=== PATIENT | female | born 1930 | race Caucasian/White ===

== ENCOUNTER 2017-09-02 09:53 | Inpatient (IN) | payer MEDICARE, MEDICAID ==
[2017-09-02] VITALS (9 sets, daily range): BP systolic 146–188; BP diastolic 63–93
[~2017-09-02] VITALS: Ht 160 cm; Wt 81.6 kg
[~2017-09-02 09:53] MED LIST: HYDROCODON-ACE1 EA15 ORAL
--- NOTE | 2017-09-02 10:06 | Emergency Room Report ---
History of Present Illness General Chief Complaint: Flu Like Symptoms Source: Patient, EMS Present Illness HPI Patient is an 86 year-old female brought in by EMS after increased generalized weakness and vomiting. Patient had onset of symptoms is morning. The patient reported feeling dizzy since this morning. Patient prior history of arthritis. Patient noted be Farsi speaking. She was noted to have a prior surgical history. Allergies: Coded Allergies: No Known Allergies (Unverified , 10/14/15) Patient History Past Medical History: see triage record Now: No Reviewed Nursing Documentation: PMH: Agreed, PSxH: Agreed Nursing Documentation-PMH Past Medical History: No History, Except For Hx Hypertension: Yes Review of Systems All Other Systems: limited - by mental status Physical Exam Vital Signs Date Time Temp Pulse Resp B/P (MAP) Pulse Ox O2 Delivery O2 Flow Rate FiO2 09/02/17 09:52 97.6 80 20 178/79 98 Room Air 97.5 General Appearance: alert, GCS 15, mild distress, Chronically Ill Eyes: bilateral eye abnormal EOM ENT: normal pharynx Neck: full range of motion Respiratory: chest non-tender, lungs clear, normal breath sounds Cardiovascular #1: normal peripheral pulses, regular rate, rhythm Gastrointestinal: normal inspection, non tender, soft, tenderness - epigastric Musculoskeletal: normal inspection Neurologic: normal inspection, alert, oriented x3, campaign assistant III-XII nml as tested, motor weakness - bilateral upper extremity Medical Decision Making Diagnostic Impression: Primary Impression: Vertigo Additional Impressions: Dehydration Generalized weakness ER Course Patient presented for dizziness. Differential diagnosis included but not limited to urinary tract infection, anemia, arrhythmia, abdominal aortic aneurysm, CVA, subarachnoid hemorrhage, benign positional vertigo.Because of complexity of patient's case laboratory testing and imaging studies were ordered.The patient started on IV fluids. Was given IV antiemetics some improvement in her symptoms. Patient was noted to some vertigo sensation CT the head read by radiology showed no evidence of acute hemorrhage. CT of the pelvis read by radiology show no inflammatory change in the abdomen or pelvis. A septal thickening in the visualized lung base to me suggest minimal pulmonary edema. Patient was noted to have bilateral renal cysts. Moderate amount of mitral and aortic annular calcification was noted. Moderate colonic diverticulosis. The patient was noted. Better after medications however she still felt weak. Patient was given IV Rocephin for her urinary infection. Dr. Landen Escalante was contacted for inpatient management Labs Test 09/02/17 10:50 09/02/17 11:35 White Blood Count 8.0 K/UL (4.8-10.8) Red Blood Count 4.71 M/UL (4.20-5.40) Hemoglobin 14.0 G/DL (12.0-16.0) Hematocrit 41.1 % (37.0-47.0) Mean Corpuscular Volume 87 FL (80-99) Mean Corpuscular Hemoglobin 29.8 PG (27.0-31.0) Mean Corpuscular Hemoglobin Concent 34.1 G/DL (32.0-36.0) Red Cell Distribution Width 11.0 % (11.6-14.8) Platelet Count 182 K/UL (150-450) Mean Platelet Volume 7.9 FL (6.5-10.1) Neutrophils (%) (Auto) 78.3 % (45.0-75.0) Lymphocytes (%) (Auto) 16.0 % (20.0-45.0) Monocytes (%) (Auto) 4.5 % (1.0-10.0) Eosinophils (%) (Auto) 0.4 % (0.0-3.0) Basophils (%) (Auto) 0.9 % (0.0-2.0) Sodium Level 138 MMOL/L (136-145) Potassium Level 4.3 MMOL/L (3.5-5.1) Chloride Level 103 MMOL/L (98-107) Carbon Dioxide Level 30 MMOL/L (21-32) Anion Gap 5 mmol/L (5-15) Blood Urea Nitrogen 18 mg/dL (7-18) Creatinine 0.7 MG/DL (0.55-1.30) Estimat Glomerular Filtration Rate mL/min (>60) Glucose Level 115 MG/DL (74-106) Lactic Acid Level 1.60 mmol/L (0.66-2.22) Calcium Level 9.6 MG/DL (8.5-10.1) Total Bilirubin 0.4 MG/DL (0.2-1.0) Aspartate Amino Transf (AST/SGOT) 24 U/L (15-37) Alanine Aminotransferase (ALT/SGPT) 20 U/L (12-78) Alkaline Phosphatase 71 U/L (46-116) Total Creatine Kinase 40 U/L (26-308) Creatine Kinase MB 1.5 NG/ML (0.0-3.6) Creatine Kinase MB Relative Index 3.7 Troponin I 0.000 ng/mL (0.000-0.056) Total Protein 7.7 G/DL (6.4-8.2) Albumin 3.5 G/DL (3.4-5.0) Globulin 4.2 g/dL Albumin/Globulin Ratio 0.8 (1.0-2.7) Urine Color Pale yellow Urine Appearance Clear Urine pH 8 (4.5-8.0) Urine Specific [place] 1.010 (1.005-1.035) Urine Protein Negative (NEGATIVE) Urine Glucose (UA) Negative (NEGATIVE) Urine Ketones Negative (NEGATIVE) Urine Occult Blood Negative (NEGATIVE) Urine Nitrite Negative (NEGATIVE) Urine Bilirubin Negative (NEGATIVE) Urine Urobilinogen Normal MG/DL (0.0-1.0) Urine Leukocyte Esterase 1+ (NEGATIVE) Urine RBC 0-2 /HPF (0 - 2) Urine WBC 2-4 /HPF (0 - 2) Urine Squamous Epithelial Cells Occasional /LPF Urine Bacteria Occasional /HPF (NONE) EKG Diagnostic Results Rate: normal Rhythm: NSR ST Segments: no acute changes Last Vital Signs Date Time Temp Pulse Resp B/P (MAP) Pulse Ox O2 Delivery O2 Flow Rate FiO2 09/02/17 09:52 97.6 80 20 178/79 98 Room Air 97.5 Status: unchanged Disposition: ADMITTED INPATIENT Condition: Stable Scripts Ondansetron Odt* (ZOFRAN ODT*) 4 Mg Tab.rapdis 4 MG ORAL Q6H Y for Nausea & Vomiting, #30 TAB 0 Refills Prov: Minh Swenson 09/02/17 Minh Swenson Sep 02, 2017 10:06
[2017-09-02 11:27] LABS: BASOPHILS % (AUTO) 0.9 % (0.0-2.0); EOSINOPHILS % (AUTO) 0.4 % (0.0-3.0); HEMATOCRIT 41.1 % (37.0-47.0); MEAN CORPUSCULAR VOLUME 87 FL (80-99); MONOCYTES % (AUTO) 4.5 % (1.0-10.0); NEUTROPHILS % (AUTO) 78.3 % (45.0-75.0); PLATELET COUNT 182 K/UL (150-450); RED BLOOD COUNT 4.71 M/UL (4.20-5.40)
--- NOTE | 2017-09-02 11:42 | Diagnostic Imaging Report ---
Indication: Headache Technique: Contiguous 5 mm thick transaxial imaging of the head obtained in a Siemens Sensation [address] scanner. Soft tissue and bone windows generated. Automatic Exposure Control was utilized. Total Dose length Product (DLP): 1383.[address] Dose Index Volume (CTDIvol): 70.38 mGy Comparison: none Findings: There is mild prominence of the ventricles, basal cisterns, and cerebral sulci consistent with atrophy. Mild, nonspecific, white matter hypoattenuation is noted throughout the brain consistent with chronic small vessel disease. There is no midline shift, edema, acute hemorrhage, mass effect, or abnormal extra-axial fluid collections. Bones and extra osseous soft tissues are unremarkable. Impression: No acute intracranial bleed, mass effect or edema. Mild atrophy of the brain. Nonspecific white matter hypoattenuation probably due to chronic small vessel disease. The CT scanner at [facility] is accredited by the [employer] and the scans are performed using dose optimization techniques as appropriate to a performed exam including Automatic Exposure control.
[2017-09-02 11:46] LABS: ANION GAP 5 mmol/L (5-15); BLOOD UREA NITROGEN 18 mg/dL (7-18); CALCIUM 9.6 MG/DL (8.5-10.1); CARBON DIOXIDE 30 MMOL/L (21-32); CHLORIDE 103 MMOL/L (98-107); CREATININE 0.7 MG/DL (0.55-1.30); POTASSIUM 4.3 MMOL/L (3.5-5.1); SODIUM 138 MMOL/L (136-145)
[2017-09-02 11:53] LABS: ALANINE AMINOTRANSFERASE 20 U/L (12-78); ALBUMIN 3.5 G/DL (3.4-5.0); ALBUMIN/GLOBULIN RATIO 0.8 (1.0-2.7); ALKALINE PHOSPHATASE 71 U/L (46-116); ASPARTATE AMINO TRANSFERASE 24 U/L (15-37); BILIRUBIN,TOTAL 0.4 MG/DL (0.2-1.0); CKMB 1.5 NG/ML (0.0-3.6); CREATINE KINASE 40 U/L (26-308)
[2017-09-02 11:55] LABS: APPEARANCE,URINE CLEAR; BILIRUBIN, URINE NEGATIVE (NEGATIVE); COLOR,URINE PALE YELLOW; GLUCOSE, URINE (UA) NEGATIVE (NEGATIVE); KETONES,URINE NEGATIVE (NEGATIVE); LEUKOCYTE ESTERASE ,URINE 1+ (NEGATIVE); NITRITE,URINE NEGATIVE (NEGATIVE); PH,URINE 8 (4.5-8.0); PROTEIN,URINE NEGATIVE (NEGATIVE); UROBILINOGEN,URINE NORMAL MG/DL (0.0-1.0)
[2017-09-02] MEDS ORDERED: Meclizine 25mg tab ORAL ONE (12:30)
[2017-09-02] MEDS ORDERED: ZOFRAN ODT4 MG ORAL (14:31)
[2017-09-02] MEDS ORDERED: KEFLEX500 MG ORAL (14:31)
[2017-09-02] MEDS ORDERED: MECLIZINE HCL12.5 MG ORAL (14:31)
[2017-09-02] MEDS ORDERED: D5 1/2NS w/KCl 20mEq 1,000 ML IV SCH (15:30)
[2017-09-02] MEDS ORDERED: cefTRIAXone 1 GM in NS 55 ML IVPB ONE (15:30)
[2017-09-02] MEDS ORDERED: LOSARTAN POTAS100 MG ORAL (15:31)
[2017-09-02] MEDS ORDERED: ASPIRIN81 M3 PO (15:32)
[2017-09-02] MEDS ORDERED: LOPRESSOR HCT1 EAC3 ORAL (15:32)
[2017-09-02] MEDS ORDERED: CALCIUM500 M3 PO (15:33)
[2017-09-02] MEDS ORDERED: AMBIEN5 MG ORAL (15:33)
[2017-09-02] MEDS ORDERED: LOSARTAN POTASS50 MG ORAL (19:38)
[2017-09-02] MEDS ORDERED: METOPROLOL SUCC50 MG ORAL (19:38)
[2017-09-03] VITALS (7 sets, daily range): BP systolic 126–177; BP diastolic 72–105
[2017-09-03] MEDS ORDERED: Promethazine/Codeine 5ml UD ORAL PRN ×2 (05:45→11:45)
[2017-09-03] MEDS ORDERED: Nitroglycerin Subl 0.4mg tab SL PRN ×2 (05:45→11:00)
[2017-09-03] MEDS ORDERED: Ketorolac 30mg Inj IV PRN ×2 (05:45→14:00)
[2017-09-03] MEDS ORDERED: Norco 5mg/325mg tab ORAL PRN ×2 (05:45→11:45)
[2017-09-03] MEDS ORDERED: Albuterol/Ipratropium 3ml neb HHN PRN ×2 (05:45→13:45)
[2017-09-03] MEDS ORDERED: Morphine Sulfate 2mg/ml Inj IVP PRN ×2 (05:45→13:00)
[2017-09-03] MEDS ORDERED: LORazepam Inj 2mg/ml 1ml IV PRN ×2 (05:45→13:45)
[2017-09-03] MEDS ORDERED: Solu-MEDROL 125mg Inj IV SCH ×2 (06:00→12:00)
[2017-09-03] MEDS ORDERED: Piperacillin/Tazobactam 2.25 GM in D5W 55 ML IV SCH (06:00)
--- NOTE | 2017-09-03 08:38 | Diagnostic Imaging Report ---
Clinical Indication: Abdominal pain Technique: No oral contrast utilized, per emergency room physician request IV administration nonionic contrast. Venous phase spiral acquisition obtained through the abdomen and pelvis. Multiplanar reconstructions were generated. Total dose length product 736.93 mGycm. CTDIvol(s) 15.7 mGy. Dose reduction achieved using automated exposure control Comparison: none Findings: Findings is not visualized. There are no findings to suggest acute appendicitis, however. There is fairly extensive colonic diverticulosis. No evidence of diverticulitis. No small bowel distention. There is a small fat-containing ventral hernia. There is a small sliding-type hiatal hernia. The stomach is otherwise unremarkable. Unremarkable duodenum. The liver, gallbladder, bile ducts, pancreas, spleen, adrenals are unremarkable. The kidneys demonstrate multiple bilateral cysts as well as multiple bilateral subcentimeter low-attenuation lesions which are too small to characterize. 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 No retroperitoneal or mesenteric mass or adenopathy. No pelvic mass or adenopathy. There is marked lumbar scoliotic deformity. There is slight loss of height of the L1 and L4 vertebral bodies, as well as grade 1-2 spondylolisthesis of L5 on S1, no associated pars defect. 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 There are old healed left lower rib fracture deformities The included lung bases demonstrate fairly extensive interstitial septal and patchy airspace opacities. The heart is borderline enlarged. There is extensive ascending thoracic aortic calcification. Impression: No acute abnormality Colonic diverticulosis. No evidence of diverticulitis Pulmonary basilar interstitial septal thickening and patchy airspace opacities, suspect pulmonary edema Mild cardiomegaly 9 mm calcified splenic hilar aneurysm L1 and L4 vertebral body compression deformity, most likely on the basis of acuity indeterminate compression fractures, although could at least in part be due to degenerative remodeling Lumbar scoliosis and associated degenerative spondylosis, L5 on S1 alignment abnormality Bilateral renal cysts. Bilateral subcentimeter low-attenuation renal lesions too small to characterize, most likely benign cysts. No further follow-up necessary Findings noted, including aortic atherosclerosis, old healed left rib fracture deformities, sacral spinal canal nerve root sleeve cyst, small fat-containing ventral hernia, small sliding-type hiatal hernia. This agrees with the preliminary interpretation provided overnight by [facility] teleradiology service. The CT scanner at [facility] is accredited by the [employer] and the scans are performed using protocols designed to limit radiation exposure to as low as reasonably achievable to attain images of sufficient resolution adequate for diagnostic evaluation.
[2017-09-03] MEDS ORDERED: Theophylline ER 100mg ORAL SCH (09:00)
[2017-09-03] MEDS ORDERED: Oseltamivir 75mg cap ORAL SCH (09:00)
[2017-09-03] MEDS ORDERED: Metoprolol Succinate XL 50mg tab ORAL SCH (09:00)
[2017-09-03] MEDS ORDERED: Heparin 5000 units/ml inj SUBQ SCH ×2 (09:00→21:00)
[2017-09-03] MEDS ORDERED: Losartan 50mg tab ORAL SCH (09:00)
--- NOTE | 2017-09-03 09:56 | History & Physical ---
History and Physical History & Physicial Dictated for Int Med-Dr Escalante no. [id number] KARIE RHODES Sep 03, 2017 09:56
--- NOTE | 2017-09-03 11:17 | Consultation ---
History of Present Illness General Date patient seen: Sep 03, 2017 Time patient seen: 09:30 Chief Complaint: Flu Like Symptoms Referring physician: dr Escalante Reason for Consultation: pulm consult Present Illness HPI 86 y/old female with PMH of HTN, arthritis presented with flu like symptoms, generalized weakness, congestion , dizziness VS revealed elevated BP 178/79, otherwise pulse ox stable on RA, afebrile CT head no acute IC pathology CT A/P no acute pathology, + evidence of interstitial pulm congestion troponin negative ECG no acute ischemic changes no leukocytosis stable HH, lytes, lactic acid patient was started on empiric abx, given 1 dose of Solumedrol and nebulizing treatment with bronchodilators and was admitted to [facility] for further management Allergies: Coded Allergies: No Known Allergies (Unverified , 10/14/15) Medication History Scheduled Aspirin (Aspirin), 81 MG PO DAILY, (Reported) Losartan Potassium* (Losartan Potassium*), 100 MG ORAL DAILY, (Reported) Metoprolol Succinate* (Metoprolol Succinate*), 50 MG ORAL DAILY, (Reported) Scheduled PRN Hydrocodone/Acetaminophen 5-325* (Hydrocodone/Acetaminophen 5-325*), 1 TAB ORAL Q6H PRN for For Pain Ondansetron Odt* (Zofran Odt*), 4 MG ORAL Q6H PRN for Nausea & Vomiting Zolpidem Tartrate* (Ambien*), 5 MG ORAL BEDTIME PRN for Insomnia, (Reported) Miscellaneous Medications Calcium Carbonate (Calcium), 500 MG PO, (Reported) Discontinued Medications Cephalexin* (Keflex*), 500 MG ORAL Q6H Discontinued Reason: Pt stopped taking med Meclizine Hcl* (Meclizine*), 12.5 MG ORAL THREE TIMES A DAY Discontinued Reason: Pt stopped taking med Patient History Resuscitation status Full Code Advanced Directive on File Review of Systems Constitutional: Reports: weakness Eye: Reports: no symptoms ENT: Reports: no symptoms Respiratory: Reports: see HPI Cardiovascular: Reports: see HPI Gastrointestinal: Reports: constipation Genitourinary: Reports: no symptoms Musculoskeletal: Reports: muscle stiffness Skin: Reports: dryness Psychiatric: Reports: no symptoms Neurological: Reports: no symptoms Endocrine: Reports: no symptoms Hematologic/Lymphatic: Reports: no symptoms ROS Narrative limited Physical Exam General Appearance: no apparent distress, alert Lines, tubes and drains: peripheral HEENT: normocephalic, atraumatic, anicteric Neck: non-tender, supple Respiratory/Chest: decreased breath sounds Cardiovascular/Chest: normal rate, regular rhythm - SR on tele Abdomen: normal bowel sounds, non tender, soft - obese Extremities: no calf tenderness, normal capillary refill Neurologic: alert, responsive Musculoskeletal: atrophy - BLE Last 24 Hour Vital Signs Date Time Temp Pulse Resp B/P (MAP) Pulse Ox O2 Delivery O2 Flow Rate FiO2 09/03/17 08:12 71 141/72 09/03/17 08:11 141/72 09/03/17 08:00 97.9 71 18 141/72 95 09/03/17 08:00 72 09/03/17 04:00 71 09/03/17 04:00 98.8 78 20 147/77 93 09/03/17 00:00 98.2 73 19 126/105 96 09/03/17 00:00 74 09/02/17 21:00 98.9 68 20 146/72 96 09/02/17 20:00 71 09/02/17 18:10 67 09/02/17 17:30 97.7 67 20 171/70 95 09/02/17 16:31 98.1 67 18 151/63 97 Room Air 98.1 09/02/17 16:00 98.1 67 18 151/63 97 Room Air 98.1 09/02/17 15:00 98.1 67 27 172/93 97 Room Air 98.1 09/02/17 14:00 98.1 69 19 164/71 99 Room Air 98.1 09/02/17 13:06 68 13 162/70 97 Room Air 09/02/17 12:00 67 12 175/83 97 Room Air Intake and Output 09/02/17 09/03/17 19:00 07:00 Intake Total 1350 ml Output Total 100 ml Balance 1250 ml Intake Oral 350 ml IV Total 1000 ml Output Urine Total 100 ml # Voids 3 2 Laboratory Tests Test 09/02/17 11:35 Urine Color Pale yellow Urine Appearance Clear Urine pH 8 (4.5-8.0) Urine Specific [place] 1.010 (1.005-1.035) Urine Protein Negative (NEGATIVE) Urine Glucose (UA) Negative (NEGATIVE) Urine Ketones Negative (NEGATIVE) Urine Occult Blood Negative (NEGATIVE) Urine Nitrite Negative (NEGATIVE) Urine Bilirubin Negative (NEGATIVE) Urine Urobilinogen Normal MG/DL (0.0-1.0) Urine Leukocyte Esterase 1+ (NEGATIVE) H Urine RBC 0-2 /HPF (0 - 2) Urine WBC 2-4 /HPF (0 - 2) Urine Squamous Epithelial Cells Occasional /LPF Urine Bacteria Occasional /HPF (NONE) Height (Feet): 5 Height (Inches): 3.00 Weight (Pounds): 180 Medications Current Medications Medications (Trade) Dose Ordered Sig/Zelda Route PRN Reason Start Time Stop Time Status Last Admin Dose Admin Acetaminophen/ Hydrocodone Bitart ([place] 5/325) 1 tab Q6H PRN ORAL For Pain 09/03/17 11:45 09/10/17 05:44 UNV Albuterol/ Ipratropium (Albuterol/ Ipratropium) 3 ml Q4H PRN HHN dyspnea 09/03/17 13:45 09/08/17 05:44 UNV Dextrose (Dextrose 50%) STAT PRN IV Hypoglycemia 09/04/17 05:45 10/03/17 05:44 UNV Heparin Sodium (Porcine) (Heparin 5000 units/ml) 5,000 units EVERY 12 HOURS SUBQ 09/03/17 21:00 10/03/17 08:59 UNV Ketorolac Tromethamine (Toradol 30mg) 15 mg EVERY 8 HOURS PRN IV moderate pain 4-6 09/03/17 14:00 09/08/17 05:44 UNV Lorazepam (Ativan 2mg/ml 1ml) 0.5 mg Q4H PRN IV For Anxiety 09/03/17 13:45 09/10/17 05:44 UNV Losartan Potassium (Cozaar) 100 mg DAILY ORAL 09/04/17 09:00 10/03/17 08:59 UNV Methylprednisolone Sodium Succinate (Solu-MEDROL) 60 mg EVERY 6 HOURS IV 09/03/17 12:00 10/03/17 05:59 UNV Metoprolol Succinate (Toprol XL) 50 mg DAILY ORAL 09/04/17 09:00 10/03/17 08:59 UNV Morphine Sulfate (Morphine Sulfate) 2 mg EVERY 4 HOURS PRN IVP severe pain 7-10 09/03/17 13:00 09/10/17 05:44 UNV Nitroglycerin (Ntg) 0.4 mg Q5M X 3 DOSES PRN SL Prn Chest Pain 09/03/17 11:00 10/03/17 05:44 UNV Ondansetron HCl (Zofran) 4 mg Q6H PRN IVP Nausea & Vomiting 09/03/17 11:45 10/03/17 05:44 UNV Oseltamivir Phosphate (Tamiflu) 30 mg BID ORAL 09/03/17 18:00 09/07/17 18:01 UNV Piperacillin Sod/ Tazobactam Sod 3.375 gm/Sodium Chloride 110 ml @ 27.5 mls/hr EVERY 8 HOURS IVPB 09/03/17 14:00 09/08/17 13:59 UNV Promethazine HCl/ Codeine (Phenergan with Codeine) 5 ml Q6H PRN ORAL cough 09/03/17 11:45 10/03/17 05:44 UNV Temazepam (Restoril) 15 mg HSPRN PRN ORAL Insomnia 09/04/17 05:45 09/10/17 05:44 UNV Theophylline (Robert-Dur) 100 mg EVERY 12 HOURS ORAL 09/03/17 21:00 10/03/17 08:59 UNV Assessment/Plan Assessment/Plan ASSESSMENT Flu like symptoms Nausea with vomiting. Vertigo. Probable urinary tract infection. Possible dehydration HTN Generalized weakness PLAN OF CARE tele O2 HHN prn s/p 1 L IV empiric abx sputum cx if able a/tussive prn influenza screen negative, empiric Tamiflu ID consult CT head no acute IC pathology BP management with current regimen and optimize as needed fall precautions PT/OT DVT GI prophylaxis pain management bowel regimen supportive care case discussed and evaluated by supervising physician Ra ([facility])Sejal NP Sep 03, 2017 11:17
--- NOTE | 2017-09-03 11:44 | Consultation ---
Consult Note Consult Note ID DIC # [id number] RUSSEL MEMBRENO M.D. Sep 03, 2017 11:44
[2017-09-03] MEDS ORDERED: Zosyn 3.375gm q8h **Extended infusion IVPB SCH ×2 (14:00)
[2017-09-03] MEDS ORDERED: Piperacillin/Tazobactam 3.375 GM in NS 110 ML IVPB SCH (14:00)
--- NOTE | 2017-09-03 14:08 | Diagnostic Imaging Report ---
Indication: Shortness of breath Technique: One view of the chest Comparison: none Findings: Inspiration is suboptimal. 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 There is generalized mild interstitial prominence. No focal airspace consolidation. There is right infrahilar atelectasis. The heart is borderline enlarged. Impression: Acuity indeterminate mild interstitial prominence although suspect interstitial edema based on recent CT findings. Correlate with clinical findings. Other findings as noted
[2017-09-03] MEDS: Solu-MEDROL 125mg Inj IV SCH ×2 (14:34→20:39)
[2017-09-03] MEDS: HydrALAZINE 50mg tab ORAL PRN (20:38)
[2017-09-03] MEDS: Theophylline ER 100mg ORAL SCH (20:39)
[2017-09-04] VITALS: BP 173/80
[2017-09-04] MEDS: HydrALAZINE 50mg tab ORAL PRN (00:42)
[2017-09-04 04:00] VITALS: BP 146/88
[2017-09-04] MEDS: Solu-MEDROL 125mg Inj IV SCH (05:18)
[2017-09-04 08:12] VITALS: BP 141/74
[2017-09-04] MEDS: Theophylline ER 100mg ORAL SCH (08:27)
--- NOTE | 2017-09-04 08:36 | Cardiology Report ---
APPROVED REPORT EKG Measurement Heart [id number] Normal sinus rhythm Possible Left atrial enlargement Borderline ECG
[2017-09-04 08:38] LABS: BASOPHILS % (AUTO) 0.5 % (0.0-2.0); HEMATOCRIT 39.1 % (37.0-47.0); HEMOGLOBIN 13.4 G/DL (12.0-16.0); LYMPHOCYTES % (AUTO) 15.9 % (20.0-45.0); MEAN CORPUSCULAR VOLUME 85 FL (80-99); MONOCYTES % (AUTO) 6.2 % (1.0-10.0); NEUTROPHILS % (AUTO) 77.4 % (45.0-75.0); PLATELET COUNT 177 K/UL (150-450); RED BLOOD COUNT 4.58 M/UL (4.20-5.40); RED CELL DISTRIBUTION WIDTH 10.8 % (11.6-14.8); WHITE BLOOD COUNT 5.7 K/UL (4.8-10.8)
[2017-09-04] MEDS ORDERED: Metoprolol Succinate XL 50mg tab ORAL SCH (09:00)
[2017-09-04] MEDS ORDERED: Losartan 50mg tab ORAL SCH (09:00)
[2017-09-04 09:03] LABS: ANION GAP 4 mmol/L (5-15); BLOOD UREA NITROGEN 17 mg/dL (7-18); CALCIUM 9.6 MG/DL (8.5-10.1); CARBON DIOXIDE 28 MMOL/L (21-32); CHLORIDE 104 MMOL/L (98-107); CREATININE 0.6 MG/DL (0.55-1.30); POTASSIUM 3.8 MMOL/L (3.5-5.1); SODIUM 136 MMOL/L (136-145)
--- NOTE | 2017-09-04 09:11 | Infectious Diseases Prog Note ---
Assessment/Plan Assessment/Plan A: Afebrile generalized weakness , improved Sp N/V HTN Arthritis P: Cont monitor pt off of AB Rx Monitor CBC Monitor BMP Monitor Cxray Subjective Constitutional: Denies: no symptoms, fever, chills, fatigue, anorexia, drenching sweats, other Allergies: Coded Allergies: No Known Allergies (Unverified , 10/14/15) Objective Vital Signs Last 24 Hour Vital Signs Date Time Temp Pulse Resp B/P (MAP) Pulse Ox O2 Delivery O2 Flow Rate FiO2 09/04/17 08:27 87 141/74 09/04/17 08:27 141/74 09/04/17 08:12 98.1 87 19 141/74 98 09/04/17 04:00 97.7 93 20 146/88 95 09/04/17 04:00 95 Room Air 09/04/17 00:42 173/80 09/04/17 00:00 95 Room Air 09/04/17 00:00 97.7 81 20 173/80 95 09/03/17 23:34 76 20 93 Room Air 09/03/17 23:34 76 20 93 Room Air 09/03/17 21:11 76 20 Room Air 09/03/17 20:38 177/94 09/03/17 20:00 93 Room Air 09/03/17 20:00 98.0 81 20 177/94 93 09/03/17 16:10 80 159/73 09/03/17 15:18 98.3 84 19 165/74 95 09/03/17 14:47 83 18 93 Room Air 09/03/17 14:41 82 18 93 Room Air 09/03/17 12:00 97.7 74 20 161/77 94 Height (Feet): 5 Height (Inches): 3.00 Weight (Pounds): 180 HEENT: anicteric Respiratory/Chest: no respiratory distress Cardiovascular: normal rate Abdomen: no organomegaly Microbiology Date/Time Source Procedure Growth Status 09/02/17 11:05 Blood Blood Culture - Preliminary NO GROWTH AFTER 24 HOURS Resulted 09/02/17 10:50 Blood Blood Culture - Preliminary NO GROWTH AFTER 24 HOURS Resulted 09/02/17 10:50 Nasal Nares Influenza Types A,B Antigen (PRAKASH) - Final Complete Laboratory Tests Test 09/03/17 12:30 09/04/17 06:40 Pro-B-Type Natriuretic Peptide 390 pg/mL (0-125) H White Blood Count 5.7 K/UL (4.8-10.8) Red Blood Count 4.58 M/UL (4.20-5.40) Hemoglobin 13.4 G/DL (12.0-16.0) Hematocrit 39.1 % (37.0-47.0) Mean Corpuscular Volume 85 FL (80-99) Mean Corpuscular Hemoglobin 29.2 PG (27.0-31.0) Mean Corpuscular Hemoglobin Concent 34.3 G/DL (32.0-36.0) Red Cell Distribution Width 10.8 % (11.6-14.8) L Platelet Count 177 K/UL (150-450) Mean Platelet Volume 7.9 FL (6.5-10.1) Neutrophils (%) (Auto) 77.4 % (45.0-75.0) H Lymphocytes (%) (Auto) 15.9 % (20.0-45.0) L Monocytes (%) (Auto) 6.2 % (1.0-10.0) Eosinophils (%) (Auto) 0.0 % (0.0-3.0) Basophils (%) (Auto) 0.5 % (0.0-2.0) Sodium Level 136 MMOL/L (136-145) Potassium Level 3.8 MMOL/L (3.5-5.1) Chloride Level 104 MMOL/L (98-107) Carbon Dioxide Level 28 MMOL/L (21-32) Anion Gap 4 mmol/L (5-15) L Blood Urea Nitrogen 17 mg/dL (7-18) Creatinine 0.6 MG/DL (0.55-1.30) Estimat Glomerular Filtration Rate mL/min (>60) Glucose Level 145 MG/DL (74-106) H Calcium Level 9.6 MG/DL (8.5-10.1) Current Medications Medications (Trade) Dose Ordered Sig/Zelda Route PRN Reason Start Time Stop Time Status Last Admin Dose Admin Acetaminophen/ Hydrocodone Bitart ([place] 5/325) 1 tab Q6H PRN ORAL For Pain 09/03/17 11:45 09/10/17 05:44 Albuterol/ Ipratropium (Albuterol/ Ipratropium) 3 ml Q4H PRN HHN dyspnea 09/03/17 13:45 09/08/17 05:44 Clonidine HCl (Catapres Tab) 0.1 mg Q6H PRN ORAL sbp above 160 09/03/17 15:45 10/03/17 15:44 Dextrose (Dextrose 50%) STAT PRN IV Hypoglycemia 09/04/17 05:45 10/03/17 05:44 Hydralazine HCl (Apresoline) 50 mg Q4H PRN ORAL SBP>160mmHg 09/03/17 21:00 10/03/17 20:59 09/04/17 00:42 Ketorolac Tromethamine (Toradol 30mg) 15 mg EVERY 8 HOURS PRN IV moderate pain 4-6 09/03/17 14:00 09/08/17 05:44 Lorazepam (Ativan 2mg/ml 1ml) 0.5 mg Q4H PRN IV For Anxiety 09/03/17 13:45 09/10/17 05:44 Losartan Potassium (Cozaar) 100 mg DAILY ORAL 09/04/17 09:00 10/03/17 08:59 09/04/17 08:27 Methylprednisolone Sodium Succinate (Solu-MEDROL) 40 mg Q8HR IV 09/03/17 14:00 10/03/17 05:59 09/04/17 05:18 Metoprolol Succinate (Toprol XL) 50 mg DAILY ORAL 09/04/17 09:00 10/03/17 08:59 09/04/17 08:27 Morphine Sulfate (Morphine Sulfate) 2 mg EVERY 4 HOURS PRN IVP severe pain 7-10 09/03/17 13:00 09/10/17 05:44 Nitroglycerin (Ntg) 0.4 mg Q5M X 3 DOSES PRN SL Prn Chest Pain 09/03/17 11:00 10/03/17 05:44 Ondansetron HCl (Zofran) 4 mg Q6H PRN IVP Nausea & Vomiting 09/03/17 11:45 10/03/17 05:44 Promethazine HCl/ Codeine (Phenergan with Codeine) 5 ml Q6H PRN ORAL cough 09/03/17 11:45 10/03/17 05:44 Temazepam (Restoril) 15 mg HSPRN PRN ORAL Insomnia 09/04/17 00:30 09/11/17 00:29 09/04/17 00:38 Theophylline (Robert-Dur) 100 mg EVERY 12 HOURS ORAL 09/03/17 21:00 10/03/17 08:59 09/04/17 08:27 RUSSEL MEMBRENO M.D. Sep 04, 2017 09:11
--- NOTE | 2017-09-04 09:15 | Consultation ---
DATE OF CONSULTATION: 09/03/2017 INFECTIOUS DISEASES CONSULTATION CONSULTING PHYSICIAN: Mario Jacobo M.D. REFERRING PHYSICIANS: 1. Landen Escalante M.D. 2. Breezy Mcdaniels M.D. REASON FOR CONSULTATION: Evaluation of the patient for possible viral infection, influenza, and sepsis, possible need for antibiotics. HISTORY OF PRESENT ILLNESS: The patient is an 86-year-old female with multiple medical problems as listed below, who came to the hospital after the patient had nausea and vomiting x1 day. The patient denies having fever, chills, diarrhea, or abdominal pain. Rapid influenza A was negative. Infectious Disease consultation has been requested for further evaluation of the patient's antibiotic management. PAST MEDICAL HISTORY: Hypertension and history of appendectomy. MEDICATIONS: Tamiflu, Solu-Medrol, and Zosyn. ALLERGIES: No known drug allergies. SOCIAL HISTORY: The patient lives at home with family. REVIEW OF SYSTEMS: HEENT: No recent change in vision or hearing. PULMONARY: No cough or shortness of breath. CARDIOVASCULAR: No chest pain or palpitation. GASTROINTESTINAL/ABDOMEN: As mentioned above. GENITOURINARY: No dysuria. MUSCULOSKELETAL: No pain in extremity. NEUROLOGIC: No seizure. PHYSICAL EXAMINATION: VITAL SIGNS: Temperature 97.9, pulse 56, respiratory rate 18, and blood pressure 141/72. HEENT: No pale conjunctivae. No icterus. NECK: No lymphadenopathy. CHEST: Clear. HEART: S1 and S2. ABDOMEN: Soft and nontender. EXTREMITIES: No cyanosis at this time. NEUROLOGIC: Awake and alert. LABORATORY AND DIAGNOSTIC DATA: White blood cells 8, hemoglobin 14, and platelets 182,000. UA unremarkable. BUN 18 and creatinine 0.7. ALT, AST, and alkaline phosphatase unremarkable. CT of the abdomen, no acute abnormality, chronic diverticulosis, and pulmonary edema. ASSESSMENT: The patient is an 86-year-old female with: 1. History of nausea and vomiting prior to admission. 2. Rapid influenza A was negative. 3. Normal white blood cells. 4. Afebrile. 5. Diverticulosis without diverticulitis. 6. No evidence of pneumonia. PLAN: 1. We will discontinue antibiotics and monitor the patient off of that. 2. Monitor chest x-ray. 3. Monitor CBC. 4. Monitor temperature. 5. Monitor blood culture. 6. Based on the patient's labs, we will do further recommendation. Thank you, Dr. Escalante and Dr. Mcdaniels, for allowing me to participate in the care of this patient. I will follow this patient with you during this hospitalization. Mario Jacobo M.D. DR: ALBERTO JOB#: [id number] CC:
--- NOTE | 2017-09-04 09:15 | History and Physical Report ---
CHIEF COMPLAINT: The patient is an 86-year-old Farsi speaking female, who presents with chief complaint of nausea and vomiting. HISTORY OF PRESENT ILLNESS: History of present illness began one day prior to admission. A telephone marketing engineer is used to translate as the patient is Farsi speaking. According to the marketing engineer, the patient began to feel dizzy yesterday morning, 09/02/2017. This progressed to nausea and vomiting. The patient was unable to tolerate p.o. liquids or solids. The patient presented to [facility]. The patient is admitted for intractable nausea and vomiting. REVIEW OF SYSTEMS: CONSTITUTIONAL: The patient denies weight loss or weight gain. The patient denies fevers or chills. HEENT: The patient denies ear or throat pain. The patient denies headache. CARDIOVASCULAR: The patient denies palpitations or chest pain. CHEST: The patient denies wheeze or shortness of breath. ABDOMEN: The patient complains of nausea and vomiting as above. The patient denies seizures or generalized weakness. PAST MEDICAL HISTORY: Significant for hypertension. PAST SURGICAL HISTORY: Significant for, 1. Appendectomy. 2. Open reduction and internal fixation of a leg fracture. CURRENT MEDICATIONS: 1. Aspirin 81 mg p.o. daily. 2. Calcium carbonate 500 mg p.o. 3 times daily. 3. [place] 5/325 mg one tablet p.o. q.4 h. p.r.n. 4. Losartan 100 mg p.o. daily. 5. Metoprolol 50 mg p.o. daily. 6. Ambien 5 mg p.o. nightly p.r.n. ALLERGIES: No known drug allergies. SOCIAL HISTORY: The patient lives with her adult son. The patient denies tobacco or alcohol use. PHYSICAL EXAMINATION: VITAL SIGNS: Temperature 98.9, respirations 20, pulse 68, and blood pressure 146/72. GENERAL: The patient is a well-developed, well-nourished, white female, in no apparent distress. HEENT: Eyes, pupils equal and responsive to light and accommodation. Extraocular movements are intact. NECK: Supple without lymphadenopathy. CHEST: Lungs are clear to auscultation bilaterally without wheezes or rales. CARDIOVASCULAR: Regular rate. S1 and S2 normal without murmurs, rubs, or gallops. ABDOMEN: Soft, nontender, and nondistended. Positive bowel sounds. No evidence of hepatosplenomegaly. Currently, no rebound or guarding noted. EXTREMITIES: Negative for clubbing, cyanosis, or edema. RECTAL: Refused. GENITAL: Refused. NEUROLOGIC: Cranial nerves II through XII are grossly intact without focal deficits. Motor strength is 5/5 bilaterally. Deep tendon reflexes are 2+ plantar. LABORATORY STUDIES: WBC 8.0, hemoglobin 14.0, hematocrit 41.1, and platelets 182,000. Sodium 138, potassium 4.3, chloride 103, CO2 30, BUN 18, creatinine 0.7, glucose 115. Troponin 0. Urinalysis showed 1+ leukocyte esterase with 2 to 4 WBC. ASSESSMENT: This is an 86-year-old Somali female: 1. Nausea with vomiting. 2. Vertigo. 3. Probable urinary tract infection. TREATMENT: 1. Vertigo/nausea/vomiting. The patient is currently tolerating a clear liquid diet. The patient is on Zofran p.r.n. for nausea and vomiting. Nausea and vomiting may be secondary to urinary tract infection. 2. Urinary tract infection. The patient has been started empirically on Zosyn. The patient may have upper respiratory tract infection versus urinary tract infection. We will await culture results. 3. Hypertension, continue metoprolol and losartan as above. Breezy Mcdaniels M.D. DR: ARCHANA JOB#: [id number] CC:
[2017-09-04 11:44] VITALS: BP 141/77
--- NOTE | 2017-09-04 11:55 | Diagnostic Imaging Report ---
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 There is suggestion of slightly decreased interstitial prominence, now minimal, may reflect decreased congestion. No new infiltrates. Left shoulder prosthesis again demonstrated. There is thoracolumbar scoliotic deformity Impression: Likely improved interstitial edema, over 2 days, minimal residual
--- NOTE | 2017-09-04 13:05 | Pulmonology Progress Note ---
Assessment/Plan Assessment/Plan ASSESSMENT Flu like symptoms Nausea with vomiting. Vertigo. Probable urinary tract infection. Possible dehydration HTN Generalized weakness PLAN OF CARE [facility] floor O2 HHN prn pulse ox stable on RA s/p 1 L IV sputum cx if able a/tussive prn influenza screen negative,blood cx prel negative empiric Tamiflu ID follows off abx as per ID , no Evidence of infection, no UTI, no PNA, afebrile, no leucocytosis CT head no acute IC pathology BP management with current regimen and optimize as needed fall precautions PT/OT DVT GI prophylaxis pain management bowel regimen supportive care vertigo resolved, possible due to mild dehydration brought in by n/v/ resolved after IV hydration stable for dc home -as per pMD case discussed and evaluated by supervising physician Subjective Allergies: Coded Allergies: No Known Allergies (Unverified , 10/14/15) Subjective transferred to [facility] afebrile, denies dizziness, headache pulse ox stable on RA VSS Objective Last 24 Hour Vital Signs Date Time Temp Pulse Resp B/P (MAP) Pulse Ox O2 Delivery O2 Flow Rate FiO2 09/04/17 11:44 97.8 85 19 141/77 97 09/04/17 08:27 87 141/74 09/04/17 08:27 141/74 09/04/17 08:12 98.1 87 19 141/74 98 09/04/17 07:45 80 20 Room Air 09/04/17 04:00 97.7 93 20 146/88 95 09/04/17 04:00 95 Room Air 09/04/17 00:42 173/80 09/04/17 00:00 95 Room Air 09/04/17 00:00 97.7 81 20 173/80 95 09/03/17 23:34 76 20 93 Room Air 09/03/17 23:34 76 20 93 Room Air 09/03/17 21:11 76 20 Room Air 09/03/17 20:38 177/94 09/03/17 20:00 93 Room Air 09/03/17 20:00 98.0 81 20 177/94 93 09/03/17 16:10 80 159/73 09/03/17 15:18 98.3 84 19 165/74 95 09/03/17 14:47 83 18 93 Room Air 09/03/17 14:41 82 18 93 Room Air Intake and Output 09/03/17 09/04/17 19:00 07:00 Intake Total 480 ml Balance 480 ml Intake Oral 480 ml # Voids 4 1 Objective General Appearance: no apparent distress, alert Lines, tubes and drains: peripheral HEENT: normocephalic, atraumatic, anicteric Neck: non-tender, supple Respiratory/Chest: decreased breath sounds Cardiovascular/Chest: normal rate, regular rhythm - SR on tele Abdomen: normal bowel sounds, non tender, soft - obese Extremities: no calf tenderness, normal capillary refill Neurologic: alert, responsive Musculoskeletal: atrophy - BLE Microbiology Date/Time Source Procedure Growth Status 09/02/17 11:05 Blood Blood Culture - Preliminary NO GROWTH AFTER 24 HOURS Resulted 09/02/17 10:50 Blood Blood Culture - Preliminary NO GROWTH AFTER 24 HOURS Resulted 09/02/17 10:50 Nasal Nares Influenza Types A,B Antigen (PRAKASH) - Final Complete Laboratory Tests 09/04/17 06:40: White Blood Count 5.7, Red Blood Count 4.58, Hemoglobin 13.4, Hematocrit 39.1, Mean Corpuscular Volume 85, Mean Corpuscular Hemoglobin 29.2, Mean Corpuscular Hemoglobin Concent 34.3, Red Cell Distribution Width 10.8L, Platelet Count 177, Mean Platelet Volume 7.9, Neutrophils (%) (Auto) 77.4H, Lymphocytes (%) (Auto) 15.9L, Monocytes (%) (Auto) 6.2, Eosinophils (%) (Auto) 0.0, Basophils (%) (Auto ) 0.5, Sodium Level 136, Potassium Level 3.8, Chloride Level 104, Carbon Dioxide Level 28, Anion Gap 4L, Blood Urea Nitrogen 17, Creatinine 0.6, Estimat Glomerular Filtration Rate , Glucose Level 145H, Calcium Level 9.6 Sejal Knapp NP ([facility]) Sep 04, 2017 13:05
--- NOTE | 2017-09-06 12:02 | Discharge Summary ---
Discharge Summary Hospital Course Date of Admission Sep 02, 2017 at 15:43 Date of Discharge Sep 04, 2017 at 12:20 Admitting Diagnosis GENERALIZED WEAKNESS, DEHYDRATION, UTI HPI Dejah Sethi is a 86 year old female who was admitted on Sep 02, 2017 at 15:43 for Generalized Weakness, Dehydration, Uti Hospital Course [id number] Discharge Discharge Disposition Patient was discharged to Home (01) Discharge Diagnoses: Kassie Faith NP Sep 06, 2017 12:02
--- NOTE | 2017-09-06 23:32 | Discharge Summary 2 SIG ---
DATE OF ADMISSION: 09/02/2017 DATE OF DISCHARGE: 09/04/2017 CONSULTANTS: 1. Mario Jacobo M.D. 2. Jerome Suazo M.D. BRIEF HOSPITAL COURSE: The patient is an 86-year-old female who presented to ED with chief complaint of nausea and vomiting. Symptoms started the day prior to admission and patient felt dizzy that progressed to nausea and vomiting. She was unable to tolerate anything by mouth, liquids or solids. She presented to emergency room. She has medical history significant for hypertension. On evaluation at ED, she was started on IV fluids and was given IV emetics with improvement of her symptoms. She was noted to have some vertigo sensation. CT of the head was done and showed no evidence of acute hemorrhage. Chest x-ray done showed mild interstitial prominence and blood work did not show any leukocytosis. Hemoglobin and hematocrit was stable. Urinalysis showed 1+ leukocyte esterase with 2 to 4 WBC. Troponin was negative. She was admitted for evaluation of nausea with vomiting, probable urinary tract infection and vertigo. She was started empirically on IV Zosyn. She was given Solu-Medrol and nebulizer treatment with bronchodilators. She was started empirically on Tamiflu. Sputum culture did not isolate any growth. Rapid influenza screen was negative for influenza A and B. CT of the abdomen and pelvis showed no acute abnormality with no evidence of diverticulitis. Antibiotic was discontinued and the patient was observed off antibiotic treatment. The patient was tolerating diet well. Repeat chest x-ray showed improved interstitial edema. She was eventually discharged home. FINAL DIAGNOSES: 1. Nausea and vomiting. 2. Probable urinary tract infection. 3. Vertigo. 4. Negative influenza A and B. 5. Diverticulosis without diverticulitis. 6. No evidence of pneumonia. DISPOSITION: The patient was discharged home. DISCHARGE MEDICATIONS: Refer to medication list. The patient was discontinued on Solu-Medrol and theophylline upon discharge. DISCHARGE INSTRUCTIONS: Follow up with Dr. Escalante in a week. Landen Escalante M.D. I have been assigned to dictate discharge summary on this account and I was not involved in the patient's management. Kassie Faith N.P. DR: BEATRICE JOB#: [id number] CC: EULOGIO
== END 2017-09-04 12:20 | disposition home or self-care (01) | DRG 690 ==
LOC: EDBD 09:53 → EMR 11:26 → EDUNIT# 11:26 → EDBEDREQ 15:22 → 2E 15:43 → EDBEDREQ 15:59 → 4E 09-03 11:19
DX: N39.0 Urinary tract infection, site not specified (principal); E86.0 Dehydration; I10 Essential (primary) hypertension; R42 Dizziness and giddiness; R53.1 Weakness; K57.90 Diverticulosis of intestine, part unspecified, without perforation or abscess without bleeding; M19.90 Unspecified osteoarthritis, unspecified site; R91.8 Other nonspecific abnormal finding of lung field
CPT/HCPCS: 36415; 70450; 71045; 74177; 80048; 80053; 81003; 82550; 82553; 83605; 83880; 84484; 85025; 86710; 87040; 93005; 94664; 99284; 99285; J2405

== ENCOUNTER 2017-10-28 21:50 | Emergency (ER) | payer MEDICAID, MEDICARE ==
[~2017-10-28] VITALS: Ht 152.4 cm; Wt 63.5 kg
[~2017-10-28 21:50] MED LIST changes: +AMBIEN5 MG ORAL; +ASPIRIN81 M3 PO; +CALCIUM500 M3 PO; +KEFLEX500 MG ORAL; +LOPRESSOR HCT1 EAC3 ORAL; +LOSARTAN POTAS100 MG ORAL; +LOSARTAN POTASS50 MG ORAL; +MECLIZINE HCL12.5 MG ORAL; +METOPROLOL SUCC50 MG ORAL; +ZOFRAN ODT4 MG ORAL
--- NOTE | 2017-10-28 22:07 | Emergency Room Report ---
History of Present Illness General Chief Complaint: Edema Source: Family Member, Medical Record Present Illness HPI 87-year-old female history of hypertension, right ankle/LE surgery 10 years ago due to accident, presenting with bilateral lower chimney edema worse on the right. Son is interpreting for patient who speaks Farsi only. States that noticed that the right leg was swollen only today. Also painful when squeezed. No palpitations chest pain or shortness of breath. Son states that this has happened in the past happened about once a year, and the swelling spontaneously goes away. But states that the swelling is much worse. No new trauma. He takes aspirin. Denies any blood clots in the past Allergies: Coded Allergies: No Known Allergies (Unverified , 10/14/15) Patient History Past Medical History: see triage record Past Surgical History: none Pertinent Family History: none Now: No Reviewed Nursing Documentation: PMH: Agreed; PSxH: Agreed Nursing Documentation-PMH Past Medical History: No History, Except For Hx Hypertension: Yes Hx Pacemaker: No Hx Asthma: No Hx COPD: No Hx Diabetes: No Hx Cancer: No Hx Gastrointestinal Problems: No Hx Dialysis: No Hx Cerebrovascular Accident: No Hx Seizures: No Review of Systems All Other Systems: negative except mentioned in HPI Physical Exam Vital Signs Date Time Temp Pulse Resp B/P (MAP) Pulse Ox O2 Delivery O2 Flow Rate FiO2 10/28/17 21:51 98.3 65 16 180/81 100 Room Air 98.2 Sp02 EP Interpretation: reviewed, normal General Appearance: alert, GCS 15, non-toxic, mild distress Head: normocephalic, atraumatic Eyes: bilateral eye normal inspection, bilateral eye PERRL, bilateral eye EOMI ENT: normal ENT inspection, normal pharynx, normal voice, moist mucus membranes Neck: normal inspection, full range of motion, supple Respiratory: normal inspection, lungs clear, normal breath sounds, no respiratory distress, no retraction, no wheezing, speaking full sentences, chest symmetrical Cardiovascular #1: normal inspection, regular rate, rhythm, no edema, normal capillary refill Cardiovascular #2: 2+ radial (R), 2+ radial (L) Gastrointestinal: normal inspection, non tender, soft, non-distended, no guarding Musculoskeletal: other - Bilateral lower ext edema, 2+ pitting, worse on the right, edema extending from ankle all the way to knee, has full range of motion of ankle and knee. Calf tenderness, skin is warm and well perfused, distal pulses are intact Neurologic: alert, oriented x3, speech normal Psychiatric: normal inspection, judgement/insight normal, memory normal Skin: normal inspection, normal color, no rash, warm/dry, well hydrated, normal turgor Medical Decision Making Diagnostic Impression: Primary Impression: Edema Additional Impression: UTI (urinary tract infection) ER Course 87-year-old female with bilateral lower ext worse on the right, as well as pain DDX: CHF, venous insufficiency, DVT cellulitis, however less likely, extremity is not warm, only slight redness Plan: Obtain labs, ua, ucx, venous duplex ER course: Patient has remained stable during ED stay. +UTI vasc studies neg Disposition: Patient is to be discharged to home. Prescriptions given are keflex Patient is instructed to follow up with their primary care doctor within 5 days. Strict return precautions discussed with patient such as fever, chills, worsening/severe pain, chest pain, SOB, nausea, vomiting, which may indicate severe illness. Patient verbalizes understanding and agrees with plan. Please note that this Emergency Department Report was dictated using Mynglesupervisor epoxy fabrication technology software, occasionally this can lead to erroneous entry secondary to interpretation by the dictation equipment EKG Diagnostic Results EP Interpretation: Yes Rate: normal Rhythm: NSR ST Segments: No acute changes ASA given to patient: No Rhythm Strip EP Interpretation: Yes Rate: 66 Rhythm: NSR, no PVCs, no ectopy CT/MRI/US Diagnostic Results CT/MRI/US Diagnostic Results : Imaging Test Ordered: VENOUS DUPLEX B/L LE Impression neg for DVT b/l Last Vital Signs Date Time Temp Pulse Resp B/P (MAP) Pulse Ox O2 Delivery O2 Flow Rate FiO2 10/28/17 21:51 98.3 65 16 180/81 100 Room Air 98.2 Disposition: HOME, SELF-CARE Condition: Improved Scripts Cephalexin* (KEFLEX*) 500 Mg Capsule 500 MG ORAL Q6H for 7 Days, #28 CAP 0 Refills Prov: Tor Raphael M.D. 10/28/17 Referrals: NOT CHOSEN POLLY/,REFERRING (PCP) Tor Raphael M.D. Oct 28, 2017 22:07
[2017-10-28 22:30] VITALS: BP 168/114
[2017-10-28 22:30] LABS: BASOPHILS % (AUTO) 1.5 % (0.0-2.0); EOSINOPHILS % (AUTO) 1.4 % (0.0-3.0); HEMATOCRIT 40.7 % (37.0-47.0); LYMPHOCYTES % (AUTO) 34.7 % (20.0-45.0); MEAN CORPUSCULAR VOLUME 85 FL (80-99); MONOCYTES % (AUTO) 9.2 % (1.0-10.0); NEUTROPHILS % (AUTO) 53.2 % (45.0-75.0); PLATELET COUNT 190 K/UL (150-450); RED BLOOD COUNT 4.81 M/UL (4.20-5.40); RED CELL DISTRIBUTION WIDTH 11.1 % (11.6-14.8); WHITE BLOOD COUNT 6.2 K/UL (4.8-10.8)
[2017-10-28 22:35] LABS: BILIRUBIN, URINE NEGATIVE (NEGATIVE); COLOR,URINE PALE YELLOW; GLUCOSE, URINE (UA) NEGATIVE (NEGATIVE); KETONES,URINE NEGATIVE (NEGATIVE); LEUKOCYTE ESTERASE ,URINE 3+ (NEGATIVE); NITRITE,URINE NEGATIVE (NEGATIVE); PH,URINE 7 (4.5-8.0); PROTEIN,URINE NEGATIVE (NEGATIVE); UROBILINOGEN,URINE NORMAL MG/DL (0.0-1.0)
[2017-10-28 22:37] LABS: APPEARANCE,URINE SLIGHTLY CLOUDY
[2017-10-28 22:47] LABS: ANION GAP 4 mmol/L (5-15); BLOOD UREA NITROGEN 17 mg/dL (7-18); CALCIUM 9.7 MG/DL (8.5-10.1); CARBON DIOXIDE 29 MMOL/L (21-32); CHLORIDE 103 MMOL/L (98-107); CREATININE 0.7 MG/DL (0.55-1.30); POTASSIUM 4.4 MMOL/L (3.5-5.1); SODIUM 136 MMOL/L (136-145)
[2017-10-28] MEDS ORDERED: KEFLEX500 MG ORAL (22:57)
[2017-10-28 22:58] LABS: ALANINE AMINOTRANSFERASE 30 U/L (12-78); ALBUMIN 3.6 G/DL (3.4-5.0); ALBUMIN/GLOBULIN RATIO 0.9 (1.0-2.7); ALKALINE PHOSPHATASE 75 U/L (46-116); ASPARTATE AMINO TRANSFERASE 31 U/L (15-37); BILIRUBIN,TOTAL 0.5 MG/DL (0.2-1.0)
[2017-10-28 23:30] VITALS: BP 145/50
[2017-10-28 23:31] VITALS: BP 145/50
--- NOTE | 2017-10-29 21:40 | Cardiology Report ---
APPROVED REPORT EKG Measurement Heart [id number] Normal sinus rhythm Low voltage QRS Borderline ECG
== END 2017-10-28 23:32 | disposition home or self-care (01) ==
LOC: EMR 21:55
DX: R60.0 Localized edema (principal); N39.0 Urinary tract infection, site not specified; I10 Essential (primary) hypertension
CPT/HCPCS: 36415; 80053; 81003; 83880; 85025; 85610; 85730; 87086; 93005; 93970; 99284

== ENCOUNTER 2018-07-10 14:06 | Emergency (ER) | payer MEDICARE ==
[~2018-07-10] VITALS: Ht 152.4 cm; Wt 49.9 kg
[2018-07-10 14:10] VITALS: BP 161/76
[2018-07-10] MEDS ORDERED: Lidocaine 1% Plain 30 ml INJ ONE ×2 (14:25→14:30)
[2018-07-10] MEDS ORDERED: Lidocaine 1% 10mg/ml/EPI 0.01mg/ml 50ml INJ ONE (14:26)
[2018-07-10] MEDS ORDERED: CEPHALEXIN500 MG ORAL (14:50)
[2018-07-10 15:00] VITALS: BP 145/70
[2018-07-10] MEDS ORDERED: Cephalexin 500mg cap ORAL ONE (15:00)
--- NOTE | 2018-07-10 15:16 | Emergency Room Report ---
History of Present Illness General Chief Complaint: Skin Rash/Abscess Source: Patient, Family Member Present Illness HPI Patient presents with son with reports and complaints of swelling to the right ring finger ongoing for the past several days patient has had several infections and swelling to that specific finger they feel that it is likely related to the fingernail Denies any trauma she has fairly severe arthritis denies any fevers or chills pain is worse with touch Allergies: Coded Allergies: No Known Allergies (Unverified , 10/14/15) Patient History Past Medical History: see triage record Pertinent Family History: none Reviewed Nursing Documentation: PMH: Agreed; PSxH: Agreed Nursing Documentation-PMH Past Medical History: No History, Except For Hx Hypertension: Yes Hx Pacemaker: No Hx Asthma: No Hx COPD: No Hx Diabetes: No Hx Cancer: No Hx Gastrointestinal Problems: No Hx Dialysis: No Hx Cerebrovascular Accident: No Hx Seizures: No Review of Systems All Other Systems: negative except mentioned in HPI Physical Exam Vital Signs Date Time Temp Pulse Resp B/P (MAP) Pulse Ox O2 Delivery O2 Flow Rate FiO2 07/10/18 14:10 98.1 80 18 161/76 94 Room Air Sp02 EP Interpretation: reviewed, normal General Appearance: well appearing, no apparent distress Head: normocephalic, atraumatic Eyes: bilateral eye PERRL, bilateral eye EOMI ENT: hearing grossly normal Neck: supple Musculoskeletal: other - Significant arthritic changes of joints, able to move digits appropriately Neurologic: alert, oriented x3, responsive Skin: other - Swelling and consistency with paronychia right ring finger, medial aspect increased pustule Lymphatic: no adenopathy Procedures Incision and Drainage Incision and Drainage : Consent: Verbal Site: Right ring finger Blade Size: 11 I & D Procedure: betadine prep Wound Location: upper extremity Wound's Depth, Shape: superficial Wound Explored: contaminated Irrigated w/ Saline (ccs): 100 Anesthesia: 1% Lidocaine - Total of 3 mL of 1% lidocaine used proximally with a digital block Splint Applied?: No Sling Applied?: No Patient Tolerated: Well Complications: None Progress After digital block performed patient had cleansing of the medial aspect of the ring finger incision was made along the medial aspect of the fingernail we had large amount of pus released small packing was placed inside the incised area to keep the area open, Medical Decision Making Diagnostic Impression: Primary Impression: paronychia ER Course The area in question required incision and drainage given the size of the swelling and the pustule this was performed with significant improvement Patient is provided with antibiotics and requires close hand specialty follow-up Last Vital Signs Date Time Temp Pulse Resp B/P (MAP) Pulse Ox O2 Delivery O2 Flow Rate FiO2 07/10/18 15:00 97.9 77 16 145/70 98 Room Air Status: improved Disposition: HOME, SELF-CARE Condition: Improved Scripts Cephalexin* (KEFLEX*) 500 Mg Capsule 500 MG ORAL EVERY 6 HOURS for 7 Days, CAP Prov: Aleah Locke DO 07/10/18 Referrals: Miguel Lam MD Patient Instructions: Paronychia, [id number] Additional Instructions: Patient is provided with the discharge instructions notified to follow up with primary doctor in the next 2-3 days otherwise return to the er with any worsening symptoms. Please note that this report is being documented using DRAGON technology. This can lead to erroneous entry secondary to incorrect interpretation by the dictating instrument. Aleah Locke DO Jul 10, 2018 15:16
== END 2018-07-10 15:00 | disposition home or self-care (01) ==
LOC: EMR 14:48
DX: L03.011 Cellulitis of right finger (principal)
CPT/HCPCS: 10060; 99283